=== PATIENT | male | born 1995 | race Caucasian/White ===

== ENCOUNTER 2016-11-11 13:31 | Emergency (ER) | payer OTHER ==
[~2016-11-11] VITALS: Ht 170.2 cm; Wt 67.7 kg
[2016-11-11 13:42] VITALS: TEMP 36.8; O2SAT 94; Ht 170.2 cm; Wt 67.7 kg
[2016-11-11] MEDS ORDERED: MULT-506 PO (13:53)
--- NOTE | 2016-11-11 14:15 | EMERGENCY ROOM VISIT NOTE ---
History Report prepared by Terriibluis miguel: Chadwick Briscoe Under the Supervision of: Dr. Nick Andersen M.D. First contact with patient: 14:07 Chief Complaint: SYNCOPE (NEAR SYNCOPE) Stated Complaint: SEIZURES Nursing Triage Summary: Patient from [facility], reports being up for over 24 hours. Was dancing, had an episode of syncope lasting 30 seconds, with ? seizure activity following. Patient was wreported by bystanders to have a brief period of combativeness after syncope, lasting less than one minute. Patient denies any c/c at present. Last PO intake per patietn was possibly 4-5 hours ago. History of Present Illness The patient is a 21 year old male who presents to the Emergency Room with complaints of a resolved episode of syncope that occurred just prior to arrival. The patient has been up for over 36 hours. 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 He felt completely fine prior to passing out. The patient was standing in a line when he passed out, and can next remember waking up on the stretcher. He was initially confused after coming to. He was also combative after initially coming to. He is feeling completely fine now. The patient has some scratches on his neck, which he believes may be due to friends trying to catch him. The patient did not bite his tongue or become incontinent. He had a similar episode last year, which he does not believe was a seizure. The patient has not had any recent flu-like symptoms, vomiting, weakness, or numbness. Source of History: patient, parent Onset: INVESTMENT ACCOUNTANT Position: other (global) Quality: other (syncope) Timing: resolved Associated Symptoms: + LOC, No cough, No numbness, No vomiting, No weakness Review of Systems See HPI for pertinent positives & negatives. A total of 10 systems reviewed and were otherwise negative. Past Medical & Surgical Medical Problems: (1) Alcohol intoxication (2) Facial laceration (3) Head injury (4) No Known Active Medical Problems Old medical records were reviewed. Nurse's notes were reviewed and I agree with. Family History No pertinent family history Social History Smoking Status: Current Some Day Smoker Alcohol Use: none Drug Use: marijuana Occupation Status: [employer] student Current/Historical Medications Scheduled Multivitamin (Multivitamin), 1 TAB PO DAILY Allergies Coded Allergies: No Known Allergies (Unverified , 2/18/17) Physical Exam Vital Signs Date Time Temp Pulse Resp B/P Pulse Ox O2 Delivery O2 Flow Rate FiO2 11/11/16 17:22 84 18 149/99 98 11/11/16 15:21 82 136/97 97 11/11/16 14:43 87 11/11/16 13:42 94 Room Air 11/11/16 13:42 36.8 98 20 144/85 93 Room Air Physical Exam General: Non ill-appearing young male, no acute distress, alert and oriented x 3 , answers questions appropriately, normal speech. HEENT: Normal cephalic atraumatic. Petechiae on face, no oral lesions. Pupils are equal round and reactive to light. Extraocular movements are intact. Oropharynx is pink with moist mucous membranes. No swelling of the mouth lips or tongue. Neck: Supple with a midline trachea. No meningeal signs or stiffness, no JVD or bruits. No Stridor. Scratches present. Chest: Clear to auscultation bilaterally. No wheezes or rhonchi. No increased work of breathing. Heart: regular rate and rhythm. Abdomen: Soft nontender, nondistended without rebound guarding or rigidity. Extremities: No cyanosis clubbing or edema. No calf tenderness or assymetry Spine/Back. Non tender to palpation. No CVA tenderness Skin: Good turgor. Petechiae on face only. Neurologic exam: Cranial nerves two through 12 are intact. Motor and sensation are intact and symmetrical throughout. Medical Decision & Procedures ER Provider Diagnostic Interpretation: X-ray results as stated below per interpretation by me and the radiologist: CHEST ONE VIEW PORTABLE CLINICAL HISTORY: Chest pain, COMPARISON STUDY: No previous studies for comparison. FINDINGS: Lung volumes are normal. There is no pneumothorax or pleural effusion. Pulmonary vascularity is normal. Lungs are clear. There is an azygos fissure. Cardiomediastinal silhouette is normal. IMPRESSION: No acute cardiopulmonary findings. Electronically signed by: Bharat Sosa M.D. 11/11/2016 2:43 PM Dictated Date/Time: 11/11/2016 2:43 PM Laboratory Results 11/11/16 13:35 Red Blood Count 4.93, Mean Corpuscular Volume 85.2, Mean Corpuscular Hemoglobin 31.0, Mean Corpuscular Hemoglobin Concent 36.4, Mean Platelet Volume 9.8, Neutrophils (%) (Auto) 72.8, Lymphocytes (%) (Auto) 14.4, Monocytes (%) (Auto) 12.3, Eosinophils (%) (Auto) 0.1, Basophils (%) (Auto) 0.3, Neutrophils # (Auto ) 5.66, Lymphocytes # (Auto) 1.12, Monocytes # (Auto) 0.96, Eosinophils # (Auto ) 0.01, Basophils # (Auto) 0.02 11/11/16 13:35 Test 11/11/16 13:35 11/11/16 14:32 White Blood Count 7.78 K/uL (4.8-10.8) Red Blood Count 4.93 M/uL (4.7-6.1) Hemoglobin 15.3 g/dL (14.0-18.0) Hematocrit 42.0 % (42-52) Mean Corpuscular Volume 85.2 fL (80-100) Mean Corpuscular Hemoglobin 31.0 pg (25-34) Mean Corpuscular Hemoglobin Concent 36.4 g/dl (32-36) Platelet Count 362 K/uL (130-400) Mean Platelet Volume 9.8 fL (7.4-10.4) Neutrophils (%) (Auto) 72.8 % Lymphocytes (%) (Auto) 14.4 % Monocytes (%) (Auto) 12.3 % Eosinophils (%) (Auto) 0.1 % Basophils (%) (Auto) 0.3 % Neutrophils # (Auto) 5.66 K/uL (1.4-6.5) Lymphocytes # (Auto) 1.12 K/uL (1.2-3.4) Monocytes # (Auto) 0.96 K/uL (0.11-0.59) Eosinophils # (Auto) 0.01 K/uL (0-0.5) Basophils # (Auto) 0.02 K/uL (0-0.2) RDW Standard Deviation 37.6 fL (36.4-46.3) RDW Coefficient of Variation 12.2 % (11.5-14.5) Immature Granulocyte % (Auto) 0.1 % Immature Granulocyte # (Auto) 0.01 K/uL (0.00-0.02) Anion Gap 18.0 mmol/L (3-11) Est Creatinine Clear Calc Drug Dose 83.4 ml/min Estimated GFR () 89.8 Estimated GFR (Non- 77.5 BUN/Creatinine Ratio 6.5 (10-20) Calcium Level 9.6 mg/dl (8.5-10.1) Total Bilirubin 0.8 mg/dl (0.2-1) Direct Bilirubin 0.2 mg/dl (0-0.2) Aspartate Amino Transf (AST/SGOT) 36 U/L (15-37) Alanine Aminotransferase (ALT/SGPT) 67 U/L (12-78) Alkaline Phosphatase 72 U/L (45-117) Total Creatine Kinase 564 U/L (39-308) Creatine Kinase MB 2.0 ng/ml (0.5-3.6) Creatine Kinase MB Ratio 0.4 (0-3.0) Total Protein 8.3 gm/dl (6.4-8.2) Albumin 4.9 gm/dl (3.4-5.0) Lipase 68 U/L (73-393) Thyroid Stimulating Hormone (TSH) 1.750 uIu/ml (0.300-4.500) Bedside Troponin I 0.000 ng/ml (0-0.045) Laboratory studies as stated above per my review. Medications Administered Medications (Trade) Dose Ordered Sig/Mateo Route Start Time Stop Time Status Last Admin Dose Admin Sodium Chloride 1,000 ml @ 999 mls/hr Q1H1M STAT IV 11/11/16 14:19 11/11/16 15:19 DC 11/11/16 14:33 999 MLS/HR Sodium Chloride (Nss 1000ml) 1,000 ml @ 200 mls/hr Q5H ONCE IV 11/11/16 14:19 11/11/16 17:34 DC 11/11/16 14:33 200 MLS/HR ECG Indication: syncope Rate (beats per minute): 82 Rhythm: normal sinus Findings: no acute ischemic change, no ectopy Comparison ECG Date: 03 January 2016 Change: Repolarization no longer present. ED Course 1408: Past medical records reviewed. The patient was evaluated in room C5, and a complete history and physical examination were performed. 1419: NSS 1000 ml @ 200 mls/hr, NSS 1000 ml @ 999 mls/hr. 1420: Patient had a negative CT scan on January 02. It was believed that he had a seizure in the setting of Adderall use. 1545: The patient is asymptomatic and resting comfortably. 1553: Discussed the case with Dr. Madrid, Neurologist. He recommends follow up with an MRI and EEG. The patient should go home and rest. 1608: Reassessed the patient. Discussed the treatment plan with him. He verbalized understanding and agreement. 1700: Explained everything to the patient and his father. Patient ready for discharge. Medical Decision Differential diagnosis includes seizure, syncope, electrolyte or metabolic abnormality, dehydration. This patient comes in as described above. He was placed in room C5. He is here for treatment and evaluation of a syncopal versus seizure event. He does have some petechiae on his face but had been yelling a lot as he was dancing in [facility]. He had not slept for about 36 hours. IV access established and has normal stable vital signs. He was hydrated with IV normal saline. Multiple blood tests was obtained. He has no significant electrolyte or metabolic abnormalities. EKG does not suggest arrhythmia or ischemia. He has remained stable and asymptomatic. He has a normal neurologic exam. I have looked through the records and he had another episode that they thought was a seizure in December of 2015 that was in the setting of taking Adderall, he denies he took any meds today. His symptoms do sound more like a seizure than syncope I think , he was apparently combative initially. This was definitely a provoked issue as last one was. I talked to Dr. Madrid who is on-call for neurology and he did not recommend starting any medications as it was provoked. He recommended that he go home and sleep and follow-up with Dr. Harding from neurology and he will ultimately need EEG and MRI for further workup. I talked to the parents who are agreement with the plan, they may also try to follow-up with somebody back home but I have had our manager of case management talk to him as well to try to help him get in this week for recheck. he should not drive or do any activities where he could hurt himself or others if he had a seizure until recheck by the neurologist. again this was a provoked issue and he seems fine when he is sleeping and taking care of himself better and does not seem like he would be a risk with normal daily activities if he sleeps adequately. He will be discharged home. The parents were happy with the plan. He should rest and drink plenty of fluids. return if: Recurrence of symptoms, chest pain, shortness of breath, fever or chills, any problems concerns. Consults Time Called: 1544 Consulting Physician: Dr. Madrid, Neurologist Returned Call: [phone]: Discussed the case with Dr. Madrid, Neurologist. He recommends follow up with an MRI and EEG. The patient should go home and rest. Impression Primary Impression: Seizure Scribe Attestation The scribe's documentation has been prepared under my direction and personally reviewed by me in its entirety. I confirm that the note above accurately reflects all work, treatment, procedures, and medical decision making performed by me. Departure Information Dispostion Home / Self-Care Referrals No Doctor, Assigned (PCP) Forms HOME CARE DOCUMENTATION FORM, IMPORTANT VISIT INFORMATION Patient Instructions My [facility] Additional Instructions Rest. Drink plenty of fluids. Do not drive or do any activities where you could hurt yourself if you have a seizure until further seen and evaluated by your neurologist -Dr. Harding Go home and sleep and do not return to [facility] today. May return tomorrow if you get enough sleep and are feeling well Return if: Chest pain, shortness of breath, further seizures, numbness weakness , any new problems concerns You should have close follow-up this week with Dr. Harding, our local neurologists and seizure expert. You will ultimately need an EEG and MRI. Our Case management team will call you on Sunday and [facility] you arrange this
[2016-11-11] MEDS ORDERED: SODIUM CHLORIDE 0.9% 1000ML 1,000 ML IV ONE (14:19)
[2016-11-11] MEDS ORDERED: SODIUM CHLORIDE 0.9% 1000ML 1,000 ML IV STA (14:19)
[2016-11-11 14:37] LABS: BASO % 0.3 %; BASO ABS # 0.02 K/uL (0-0.2); BUN/CREATININE RATIO 6.5 (10-20); CALCIUM 9.6 mg/dl (8.5-10.1); COMPLETE YES; CREATININE 1.3 mg/dl (0.60-1.40); EOS % 0.1 %; IG% 0.1 %; LYMPH % 14.4 %; LYMPH ABS # 1.12 K/uL (1.2-3.4); MEAN CELL VOLUME 85.2 fL (80-100); MEAN CORPUSCULAR HGB CONC 36.4 g/dl (32-36); MEAN PLATELET VOLUME 9.8 fL (7.4-10.4); MONO % 12.3 %; NEUT % 72.8 %; PLATELET COUNT 362 K/uL (130-400); POTASSIUM 3.3 mmol/L (3.5-5.1); RED BLOOD COUNT 4.93 M/uL (4.7-6.1); WHITE BLOOD COUNT 7.78 K/uL (4.8-10.8)
--- NOTE | 2016-11-11 14:45 | DIAGNOSTIC IMAGING REPORT ---
CHEST ONE VIEW PORTABLE CLINICAL HISTORY: Chest pain, COMPARISON STUDY: No previous studies for comparison. FINDINGS: Lung volumes are normal. There is no pneumothorax or pleural effusion. Pulmonary vascularity is normal. Lungs are clear. There is an azygos fissure. Cardiomediastinal silhouette is normal. IMPRESSION: No acute cardiopulmonary findings. Electronically signed by: Bharat Sosa M.D. 11/11/2016 2:43 PM Dictated Date/Time: 11/11/2016 2:43 PM
[2016-11-11 14:48] LABS: CKMB/CK RATIO 0.4 (0-3.0); THYROID STIMULATING HORMONE 1.75 uIu/ml (0.300-4.500)
[2016-11-11 17:22] VITALS: BP 149/99; PULSE 84; O2SAT 98
== END 2016-11-11 17:23 | disposition home or self-care (01) ==
LOC: EDBD 13:31 → C.EDC 13:32
DX: R56.9 Unspecified convulsions (principal); F17.200 Nicotine dependence, unspecified, uncomplicated

== ENCOUNTER → 2016-11-16 | Outpatient (CLI) | payer OTHER ==
[~2016-11-16] MED LIST: MULT-506 PO
--- NOTE | 2016-11-16 16:01 | EEG Procedure Note ---
EEG Procedure Note Date of Service Nov 16, 2016. Start / End Times Start Time: 2:53 PM End Time: 3:14 PM Referring Physician Nick Montano History This is a 21-year-old male with a syncopal event. EEG for further evaluation of possible seizure etiology. No home medications reported Home Medication List Scheduled Multivitamin (Multivitamin), 1 TAB PO DAILY Description This is a 21 electrode EEG with a single channel dedicated to limited EKG. The electrodes were placed in accordance with the International 10-20 system. At the start of the recording the patient was in an awake state. Background was well organized and composed of symmetric mixed alpha and beta frequencies. There was a symmetric well-formed moderate amplitude 10-11 Hz posterior dominant rhythm that was reactive to eye opening and closure. Hyperventilation with good effort produced no abnormalities. Intermittent photic stimulation at various frequencies produced no abnormalities. There was no state changes or sleep transients. Interpretation This is a normal awake only routine EEG. There was no electrographic seizures or epileptiform discharges. Clinical Correlation A normal EEG does not rule out epilepsy if there is a strong clinical suspicion.
== END | disposition home or self-care (01) ==
LOC: C.NEUR 14:18
PROVIDERS: ATTEND Psychiatry & Neurology Neurology
DX: R56.9 Unspecified convulsions (principal)

== ENCOUNTER → 2016-11-17 | Outpatient (CLI) | payer OTHER ==
[~2016-11-17] MED LIST changes: +GADAVIST IV PRN
--- NOTE | 2016-11-17 15:22 | DIAGNOSTIC IMAGING REPORT ---
MRI OF THE BRAIN WITHOUT AND WITH IV CONTRAST CLINICAL HISTORY: R56.9 [id number] COMPARISON STUDY: Head CT dated 01/03/2016 TECHNIQUE: MRI of the brain was performed from the vertex to the skull base utilizing various T1 and T2 weighted sequences. Following the IV administration of 7.5 mL of Gadavist contrast, additional enhanced images were obtained. FINDINGS: Sagittal T1, axial diffusion, proton density and T2 weighted axial, coronal FLAIR, and pre and post axial T1-weighted images were acquired. These were supplemented with post gadolinium coronal T1 weighted images. No intra or extra-axial mass lesions are visualized. Axial diffusion-weighted images reveal no evidence of acute or subacute infarction. There is no evidence of ventricular dilatation. Proton density T2-weighted and FLAIR images reveal no significant intraparenchymal signal abnormalities. There are no abnormal flow voids. There is no evidence of pathologic enhancement. Coronal T2-weighted images through the temporal lobes reveal no abnormalities. IMPRESSION: Normal study. Electronically signed by: Shlomo Toussaint M.D. 11/17/2016 3:21 PM Dictated Date/Time: 11/17/2016 3:19 PM
== END | disposition home or self-care (01) ==
LOC: C.MRI 13:44
PROVIDERS: ATTEND Psychiatry & Neurology Neurology
DX: R56.9 Unspecified convulsions (principal)